=== PATIENT | male | born 1965 | race Caucasian/White ===

== ENCOUNTER 2017-12-06 20:36 | Emergency (ER) | payer OTHER ==
[2017-12-06 20:53] VITALS: BP 148/89
[2017-12-06] MEDS ORDERED: LIDOCAINE 1%/EPINEPHRINE INJ 20 ML VIAL INJ ONE (21:10)
[2017-12-06] MEDS ORDERED: CEFTRIAXONE INJ 1000 MG VIAL IM ONE (22:29)
[2017-12-06] MEDS ORDERED: LIDOCAINE 1% INJ-PF (10 MG/ML) 30 ML SDV INJ ONE (22:29)
[2017-12-06] MEDS ORDERED: DIPH/PERTUSS(ACELL)/TETANUS VAC/PF 0.5 ML SYR (>=10YO) IM ONE (22:30)
--- NOTE | 2017-12-06 22:31 | ER Document Report ---
ED Wound - General Chief Complaint: Leg Injury Stated Complaint: LEG INJURY Time Seen by Provider: 12/06/17 21:10 Notes: Patient is a 52-year-old male presents emergency department with chief complaint of laceration to the left medial knee. Was using a chainsaw when it clipped the inside of his leg. This approximately happened 4 hours prior to arrival. States he is on Plavix and aspirin but stopped Plavix about a week ago. Admits to history of coronary artery disease with multiple stents, [place]. History of hypertension. He otherwise denies any pain at this time is able to ambulate. Denies any numbness or tingling distal to the injury. States his tetanus was possibly 3 years ago but he is unsure requesting an update today. Denies any allergies TRAVEL OUTSIDE OF THE [place] IN LAST 30 DAYS: No - Related Data Allergies/Adverse Reactions: No Known Allergies Allergy (Unverified 12/06/17 20:42) Past Medical History - Social History Smoking Status: Never Smoker Family History: Reviewed & Not Pertinent Patient has suicidal ideation: No Patient has homicidal ideation: No - Past Medical History Cardiac Medical History: Reports: Hx Heart Attack - plavix and asa everyday Renal/ Medical History: Denies: Hx Peritoneal Dialysis Review of Systems - Review of Systems Constitutional: No symptoms reported Cardiovascular: No symptoms reported Respiratory: No symptoms reported Gastrointestinal: No symptoms reported Musculoskeletal: See HPI Skin: See HPI -: Yes All other systems reviewed and negative Physical Exam - Vital signs Vitals: Temp Pulse Resp BP Pulse Ox 97.8 F 72 20 148/89 H 96 12/06/17 20:49 12/06/17 20:49 12/06/17 20:49 12/06/17 20:49 12/06/17 20:49 - Notes Notes: PHYSICAL EXAM GENERAL: Alert, interacts well. LUNGS: Clear to auscultation bilaterally, no wheezes, rales, or rhonchi. No respiratory distress. HEART: Regular rate and rhythm. No murmurs, gallops, or rubs. EXTREMITIES: Moves all 4 extremities spontaneously. No edema, radial and dorsalis pedis pulses 2/4 bilaterally. No cyanosis. NEUROLOGICAL: Alert and oriented x4. Normal speech. PSYCH: Normal affect, normal mood. SKIN: Warm, dry, normal turgor. 5cm horizontal laceration over the anteromedial knee with active bleeding with partial involvement of the muscle. Course - Re-evaluation Re-evalutation: 12/06/17 22:24 Tourniquet was applied at 2105 with dramatic decrease in bleeding and quick clot applied. Pressure dressing left for 30 minutes. Upon reassessment a superficial arteriole was noted to still be bleeding and was tied off utilizing 5.0 vicryl. The wound was irrigated with betadine and saline. Wound closed primarily with 4.0 prolene and sterile dressing applied. Repeat neurovascular exam is intact without any focal neurological deficits distal to the laceration. Patient with full range of motion. Will discharge home on crutches. We will have him follow-up in 1 week with primary care otherwise discussed strict return precautions to the emergency department. Patient and family agree with plan. Tetanus status updated and also received a IM dose of antibiotics. - Vital Signs Vital signs: Temp Pulse Resp BP Pulse Ox 97.8 F 72 20 148/89 H 96 12/06/17 20:49 12/06/17 20:49 12/06/17 20:49 12/06/17 20:49 12/06/17 20:49 Procedures - Laceration/Wound Repair Left Knee Wound length (cm): 5 Wound's Depth, Shape: Into muscle Laceration pre-procedure: Sterile PPE donned, Betadine prep applied, Sterile drapes applied Anesthetic type: 1% Lidocaine w/epi Volume Anesthetic (mLs): 10 Wound explored: Clean, No foreign body removed Irrigated w/ Saline (mLs): 500 Wound Debrided: Minimal Wound Repaired With: Sutures Suture Size/Type: 4:0, Prolene Number of Sutures: 8 Layer Closure?: No Post-procedure wound care: Sterile dressing applied Post-procedure NV exam normal: Yes Complications: No Discharge - Discharge Clinical Impression: Laceration Condition: Good Disposition: HOME, SELF-CARE Additional Instructions: LACERATION CARE: Your laceration has been sutured to keep the skin edges aligned during healing. The time of suture removal depends on the nature and location of your cut. Please follow the care instructions the doctor has outlined for you and return for further care, according to the schedule you've been given. Keep the wound and dressing clean. Unless you were told otherwise, you may shower daily, blotting the wound dry with a clean, unused towel. At other times, If the dressing gets wet or blood soaked, remove it and blot the wound dry, then reapply a new dressing. Unless you were instructed otherwise, dressings should be changed at least daily. If any signs of infection occur (swelling, redness, drainage, increasing tenderness, red streaks, tender lumps in the armpit or groin above the laceration, or fever), see the doctor immediately. SOAP CLEANSING: Gently wash the wound daily using a mild soap (like Ivory, Phisoderm, Neutrogena). Use warm water, rubbing gently until all debris, ooze, and crusting have been washed from the wound. Allow to dry briefly (about 10 minutes) after cleaning. Repeat this cleansing at least three times a day for the first two days and then once or twice a day. ANTIBIOTIC OINTMENT PROTECTION: Your wounds are such that dressing them is not practical or optional. After cleansing, you should apply a thin coating of antibiotic ointment ( Bacitracin, not Neosporin) to the wounds at least three times daily. This lessens infection risk, and may decrease the amount of scarring. Use a q-tip or dull butter knife, not your finger, to apply this ointment. Any debris or ooze which builds up in the ointment should be gently rubbed off with a sterile gauze pad. Harder crusting may need to be gently scrubbed off with a clean wash cloth with soap and warm water, perhaps applying a warm, wet wash cloth to the wound for ten minutes first. Development of redness, severe itching, or blistering may mean allergy to the ointment. See the doctor. TETANUS IMMUNIZATION GIVEN: You have been given an immunization against tetanus. Please record this in your records. In general, a booster is needed only once every 10 years. The tetanus shot protects against tetanus or "lockjaw," which is a complication of certain wound infections (the tetanus shot cannot protect against the actual infection). The immunization site may become warm and red due to local reaction. If this occurs, apply warm compresses and take aspirin or ibuprofen to reduce inflammation and discomfort. Return for evaluation if the reaction becomes severe. PROPHYLACTIC ANTIBIOTIC: The antibiotics which have been prescribed are designed to decrease the risk of infection. Only certain types of wounds benefit from this -- the typical cut, scrape, or burn DOES NOT require antibiotics. Of course, infection can still occur despite the use of prophylactic antibiotics. Your wound will heal with less chance of an infectious complication if you take the medication as directed. The most important dose is the FIRST dose, so don't delay filling the prescription! FOLLOW-UP CARE: Your sutures should be removed in 10-14 days. To facilitate a timely removal of your sutures, you may return to the Emergency Department at [facility]. You do not need to call for an appointment, but the best time to come in for suture removal is early in the morning. If you have been referred to another physician for follow-up care, call that physicians office for an appointment as you were instructed. If you experience a significant change in your laceration, or if you are concerned there may be an infection (swelling, redness, drainage, increasing tenderness, red streaks, tender lumps in the armpit or groin above the laceration, or fever) , return to the Emergency Department immediately re-evaluation. Prescriptions: Cephalexin Monohydrate [Keflex 500 mg Capsule] 500 mg PO Q6H 7 Days capsule Referrals: ROBERT JUAN MD [[facility]FF] - Follow up in 1 week
== END 2017-12-06 22:59 | disposition home or self-care (01) ==
LOC: ER 20:36
DX: S86.822A Laceration of other muscle(s) and tendon(s) at lower leg level, left leg, initial encounter (principal); S81.012A Laceration without foreign body, left knee, initial encounter; W29.3XXA Contact with powered garden and outdoor hand tools and machinery, initial encounter; I25.10 Atherosclerotic heart disease of native coronary artery without angina pectoris; I25.2 Old myocardial infarction; I10 Essential (primary) hypertension; Z95.5 Presence of coronary angioplasty implant and graft; Z79.82 Long term (current) use of aspirin
CPT/HCPCS: 99283; 96372; 90471; 90715; 12002; J3490 ×2; J0696